=== PATIENT | male | born 1960 | race Caucasian/White ===

== ENCOUNTER → 2017-11-05 | Outpatient (CLI) | payer OTHER ==
[~2017-11-05] MED LIST: APIX5TAB PO; ASPI-621 PO; ASPI325T17 PO; FLEC100T PO; OMNIPAQUE 350 MG/ML, 150 ML BOTTLE ONE; PANT40TA3 PO; VERA240C2 PO; VERA40TA PO
== END | disposition home or self-care (01) ==
LOC: CFH 12:50
PROVIDERS: ATTEND Internal Medicine Cardiovascular Disease
DX: R91.1 Solitary pulmonary nodule (principal); J98.4 Other disorders of lung; I48.91 Unspecified atrial fibrillation
CPT/HCPCS: 71046; 75572; Q9967

== ENCOUNTER 2017-11-08 06:19 | Observation (INO) | payer OTHER ==
[2017-11-05 14:14] VITALS: BP 133/94
[2017-11-05 14:36] LABS: BASOPHILS # (AUTO) 0.07 x10^3/uL (0-0.1); BASOPHILS % (AUTO) 1 % (0-1); EOSINOPHILS % (AUTO) 1 % (1-7); LYMPHOCYTES % (AUTO) 23 % (22-44); MD NO; MEAN CORPUSCULAR HEMOGLOBIN 31.4 pg (27.5-34.5); MEAN CORPUSCULAR HGB CONC 34.5 g/dL (33.2-36.2); MEAN CORPUSCULAR VOLUME 91.2 fL (81-97); MEAN PLATELET VOLUME 7.4 fL (7.4-10.4); MONOCYTES # (AUTO) 0.46 x10^3/uL (0.2-0.8); MONOCYTES % (AUTO) 5 % (2-9); NEUTROPHILS # (AUTO) 6.03 x10^3/uL (1.8-6.8); NEUTROPHILS % (AUTO) 70 % (42-75); PLATELET COUNT 265 x10^3/uL (130-400); RED BLOOD COUNT 4.84 x10^6/uL (4.38-5.82); RED CELL DISTRIBUTION WIDTH 13.6 % (9.4-14.8)
[2017-11-05 14:45] LABS: ALBUMIN 3.9 g/dL (3.4-5.0); ANION GAP 8 mmol/L (5-15); CALCIUM 8.7 mg/dL (8.5-10.1); CHLORIDE 108 mmol/L (98-107)
[2017-11-05 14:48] LABS: ALANINE AMINOTRANSFERASE 29 U/L (12-78); ALKALINE PHOSPHATASE 67 U/L (45-117); BILIRUBIN,TOTAL 0.5 mg/dL (0.2-1.0); CREATININE 0.99 mg/dL (0.7-1.3); TOTAL PROTEIN 6.9 g/dL (6.4-8.2)
[~2017-11-08] VITALS: Ht 180.3 cm; Wt 72.6 kg
[~2017-11-08 06:19] MED LIST changes: -APIX5TAB PO; -FLEC100T PO; -OMNIPAQUE 350 MG/ML, 150 ML BOTTLE ONE
[2017-11-08] MEDS ORDERED: SODIUM CHLORIDE 0.9% 1,000 ML IV SCH ×2 (06:33→07:00)
[2017-11-08] MEDS ORDERED: MIDAZOLAM 1 MG/ML, 2ML ONE (07:47)
[2017-11-08] MEDS ORDERED: FENTANYL PF 250 MCG/5ML ONE (07:47)
[2017-11-08] MEDS ORDERED: PROTAMINE SULFATE 10 MG/ML, 5ML ONE (10:50)
[2017-11-08] MEDS ORDERED: ACETAMINOPHEN 325 MG TABLET PO PRN ×2 (11:00→12:00)
[2017-11-08] MEDS ORDERED: ZOLPIDEM 5MG TABLET PO PRN (11:00)
[2017-11-08] MEDS ORDERED: ONDANSETRON ODT 8 MG PO PRN (12:00)
[2017-11-08] MEDS ORDERED: MORPHINE SULFATE 4 MG/ML, 1ML IVPush PRN (12:00)
[2017-11-08] MEDS ORDERED: EPHEDRINE 50 MG/ML, 1ML IM PRN (12:00)
[2017-11-08] MEDS ORDERED: PROMETHAZINE 25 MG/ML, 1ML IV PRN (12:00)
[2017-11-08] MEDS ORDERED: OXYcodone 5 MG/5 ML ORAL.SOL UDC PO PRN (12:00)
[2017-11-08] MEDS ORDERED: FENTANYL PF 100 MCG/2ML IV PRN (12:00)
[2017-11-08] MEDS ORDERED: MEPERIDINE/PF 25MG/0.5ML IVPush PRN (12:00)
[2017-11-08] MEDS ORDERED: DIPHENHYDRAMINE 50 MG/ML, 1ML IVPush PRN (12:00)
[2017-11-08] MEDS ORDERED: MIDAZOLAM 1 MG/ML, 2ML IV PRN (12:00)
[2017-11-08] MEDS ORDERED: ONDANSETRON 2MG/ML, 2ML IV PRN (12:00)
[2017-11-08] MEDS ORDERED: PROMETHAZINE 25 MG SUPP PR PRN (12:00)
[2017-11-08] MEDS ORDERED: PROMETHAZINE 12.5 MG SUPP PR PRN (12:00)
[2017-11-08] MEDS ORDERED: APIXABAN 5 MG TABLET ONE (13:17)
[2017-11-08] MEDS: APIXABAN 5 MG TABLET PO SCH (13:20)
[2017-11-08] MEDS ORDERED: FLECAINIDE 100MG TABLET ONE (14:03)
[2017-11-08] MEDS: FLECAINIDE 100MG TABLET PO SCH (14:09)
[2017-11-08] MEDS ORDERED: DEXAMETHASONE 4 MG/ML, 1ML ONE (15:37)
[2017-11-08] MEDS ORDERED: ONDANSETRON 2MG/ML, 2ML ONE (15:37)
[2017-11-08] MEDS ORDERED: SUCCINYLCHOLINE 20 MG/ML, 10ML ONE (15:37)
[2017-11-08] MEDS ORDERED: PROPOFOL 10 MG/ML, 20ML ONE (15:37)
[2017-11-08] MEDS ORDERED: ROCURONIUM 10MG/ML,5ML ONE (15:37)
[2017-11-08 19:31] VITALS: BP 121/70
[2017-11-09] MEDS: FLECAINIDE 100MG TABLET PO SCH (01:22)
[2017-11-09] MEDS: APIXABAN 5 MG TABLET PO SCH ×2 (01:22→10:17)
[2017-11-09 01:24] VITALS: BP 113/74
[2017-11-09 10:22] VITALS: BP 121/75
[2017-11-09] MEDS ORDERED: APIX5TAB PO (10:29)
[2017-11-09] MEDS ORDERED: FLEC100T PO (10:29)
== END 2017-11-09 12:40 | disposition home or self-care (01) ==
LOC: OUT 06:19 → ORIP 10:54 → 5SO 13:33 → DCLOUNGE 11-09 12:26
PROVIDERS: ADMIT Internal Medicine Cardiovascular Disease; ATTEND Internal Medicine Cardiovascular Disease
DX: I48.91 Unspecified atrial fibrillation (principal); I48.92 Unspecified atrial flutter
CPT/HCPCS: 36415; 80053; 85025; 85347; 93306; 93312; 93321; 93325; 93613; 93655; 93656; 93662; C1730; C1731; C1732; C1759; C1766; C1893; C1894; G0378; J0330; J1100; J2250; J2405; J2704; J2720; J3010; J7030

== ENCOUNTER → 2019-01-30 | Outpatient (CLI) | payer OTHER ==
[~2019-01-30] MED LIST changes: +APIX5TAB PO; -ASPI-621 PO; +ASPI81TA45 PO; +FLEC100T PO
== END | disposition home or self-care (01) ==
LOC: CFH 15:23
PROVIDERS: ATTEND Nurse Practitioner Family
DX: I08.0 Rheumatic disorders of both mitral and aortic valves (principal); I48.91 Unspecified atrial fibrillation
CPT/HCPCS: 93306

== ENCOUNTER 2019-02-19 11:33 | Outpatient (CLI) | payer OTHER | END 2019-02-19 23:59 | disposition home or self-care (01) | LOC: CFH 11:33 | PROVIDERS: ATTEND Nurse Practitioner Family | DX: I48.91 Unspecified atrial fibrillation (principal) | CPT/HCPCS: 78452; 93017; A9502 ==

== ENCOUNTER 2019-03-07 07:27 | Day surgery (SDC) | payer OTHER ==
[~2019-03-07] VITALS: Ht 180.3 cm; Wt 84.1 kg
[2019-03-07] MEDS ORDERED: SODIUM CHLORIDE 0.9% 1,000 ML IV SCH (07:38)
[2019-03-07 07:50] VITALS: BP 117/75
[2019-03-07] MEDS ORDERED: PLEASE ENTER HEIGHT AND WEIGHT MC SCH (08:00)
[2019-03-07] MEDS ORDERED: ASPIRIN 325 MG TABLET EC PO ONE (08:00)
[2019-03-07] MEDS ORDERED: METO25TA35 PO (08:02)
[2019-03-07 08:16] LABS: BASOPHILS # (AUTO) 0.04 x10^3/uL (0-0.1); BASOPHILS % (AUTO) 1 % (0-1); EOSINOPHILS # (AUTO) 0.11 x10^3/uL (0-0.4); EOSINOPHILS % (AUTO) 2 % (1-7); LYMPHOCYTES # (AUTO) 1.47 x10^3/uL (1-3.4); LYMPHOCYTES % (AUTO) 25 % (22-44); MD NO; MEAN CORPUSCULAR HEMOGLOBIN 30.6 pg (27.5-34.5); MEAN CORPUSCULAR HGB CONC 33.6 g/dL (33.2-36.2); MEAN CORPUSCULAR VOLUME 91.1 fL (81-97); MEAN PLATELET VOLUME 7.2 fL (7.4-10.4); MONOCYTES # (AUTO) 0.44 x10^3/uL (0.2-0.8); MONOCYTES % (AUTO) 8 % (2-9); NEUTROPHILS # (AUTO) 3.76 x10^3/uL (1.8-6.8); NEUTROPHILS % (AUTO) 65 % (42-75); PLATELET COUNT 295 x10^3/uL (130-400); RED BLOOD COUNT 4.92 x10^6/uL (4.38-5.82); RED CELL DISTRIBUTION WIDTH 12.6 % (9.4-14.8)
[2019-03-07 08:26] LABS: ANION GAP 3 mmol/L (5-15); CALCIUM 8.7 mg/dL (8.5-10.1); CHLORIDE 113 mmol/L (98-107); CREATININE 0.99 mg/dL (0.7-1.3)
[2019-03-07] MEDS ORDERED: MIDAZOLAM 1 MG/ML, 2ML ONE ×2 (08:39→09:23)
[2019-03-07] MEDS ORDERED: FENTANYL PF 100 MCG/2ML ONE (08:40)
[2019-03-07] MEDS ORDERED: HEPARIN 1,000 UNITS/ML, 10ML ONE (08:40)
[2019-03-07] MEDS ORDERED: NITROGLYCERIN 5 MG/ML, 10ML ONE (08:40)
[2019-03-07] MEDS ORDERED: LIDOCAINE-MPF 1%, 5ML ONE (08:40)
[2019-03-07] MEDS ORDERED: VERAPAMIL 2.5 MG/ML, 2ML ONE (08:40)
[2019-03-07] MEDS ORDERED: ASPIRIN 325 MG TABLET EC ONE (08:53)
[2019-03-07] MEDS ORDERED: LIDOCAINE 2%, 20ML ONE (09:23)
[2019-03-07] MEDS ORDERED: FLU VACC QS2019-20 36MOS UP/PF 0.5 ML IM-VACC ONE (11:00)
== END 2019-03-07 11:08 | disposition home or self-care (01) ==
LOC: CACL 07:27
PROVIDERS: ATTEND Internal Medicine Cardiovascular Disease
DX: I25.118 Atherosclerotic heart disease of native coronary artery with other forms of angina pectoris (principal); I25.83 Coronary atherosclerosis due to lipid rich plaque; Z23 Encounter for immunization; I48.0 Paroxysmal atrial fibrillation; I10 Essential (primary) hypertension; Z79.899 Other long term (current) drug therapy
CPT/HCPCS: 36415; 80048; 85025; 90471; 90686; 93458; 99156; C1769; C1894; J1644; J2250; J3010; Q9967; G0008

== ENCOUNTER → 2020-01-26 | Outpatient (CLI) | payer OTHER ==
[~2020-01-26] MED LIST changes: +METO25TA35 PO
== END | disposition home or self-care (01) ==
LOC: STAR 09:35
PROVIDERS: ATTEND Anesthesiology
DX: Z20.828 Contact with and (suspected) exposure to other viral communicable diseases (principal)
CPT/HCPCS: 87635

== ENCOUNTER → 2020-01-26 | Outpatient (CLI) | payer OTHER ==
[~2020-01-26] MED LIST changes: +OMNIPAQUE 350 MG/ML, 150 ML BOTTLE ONE
== END | disposition home or self-care (01) ==
LOC: CFH 08:29
PROVIDERS: ATTEND Internal Medicine Cardiovascular Disease
DX: I48.91 Unspecified atrial fibrillation (principal)
CPT/HCPCS: 71046; 75572; Q9967

== ENCOUNTER 2020-01-30 06:12 | Observation (INO) | payer OTHER ==
[~2020-01-30] VITALS: Ht 180.3 cm; Wt 81.9 kg
[~2020-01-30 06:12] MED LIST changes: -OMNIPAQUE 350 MG/ML, 150 ML BOTTLE ONE
[2020-01-30 06:40] VITALS: BP_SYST 127; BP_SYST 151; BP_DIAS 73; BP_DIAS 76
[2020-01-30] MEDS ORDERED: FLEC50TA25 PO ×2 (07:14)
[2020-01-30] MEDS ORDERED: PROPOFOL 50 ML ONE (07:55)
[2020-01-30] MEDS ORDERED: FENTANYL PF 250 MCG/5ML ONE (07:55)
[2020-01-30] MEDS ORDERED: MIDAZOLAM 1 MG/ML, 2ML ONE (07:55)
[2020-01-30] MEDS ORDERED: SUCCINYLCHOLINE 20 MG/ML, 10ML ONE (08:08)
[2020-01-30] MEDS ORDERED: ONDANSETRON 2MG/ML, 2ML ONE (08:08)
[2020-01-30] MEDS ORDERED: LIDOCAINE 1%, 20ML ONE (08:29)
[2020-01-30] MEDS ORDERED: APIXABAN 5 MG TABLET ONE (08:48)
[2020-01-30] MEDS ORDERED: ISOPROTERENOL 0.2MG/ML, 5ML ONE (09:10)
[2020-01-30] MEDS ORDERED: DEXAMETHASONE 4 MG/ML, 5ML ONE (09:41)
[2020-01-30] MEDS ORDERED: ROCURONIUM 10MG/ML,5ML ONE (09:41)
[2020-01-30] MEDS ORDERED: HEPARIN 1,000 UNITS/ML, 10ML ONE ×3 (09:56)
[2020-01-30] MEDS: APIXABAN 5 MG TABLET PO SCH ×2 (11:30→20:25)
[2020-01-30] MEDS ORDERED: PROMETHAZINE 25 MG/ML, 1ML IVPush PRN (11:30)
[2020-01-30] MEDS ORDERED: PROMETHAZINE 25 MG/ML, 1ML IVPush ONE (11:30)
[2020-01-30] MEDS ORDERED: ACETAMINOPHEN 325 MG TABLET PO PRN ×2 (11:30)
[2020-01-30] MEDS ORDERED: FENTANYL PF 100 MCG/2ML IV PRN (11:30)
[2020-01-30] MEDS ORDERED: EPHEDRINE 50 MG/ML, 1ML IVPush PRN (11:30)
[2020-01-30] MEDS ORDERED: EPHEDRINE 50 MG/ML, 1ML IM PRN (11:30)
[2020-01-30] MEDS ORDERED: OXYcodone 5 MG/5 ML ORAL.SOL UDC PO PRN (11:30)
[2020-01-30] MEDS ORDERED: MEPERIDINE/PF 25MG/0.5ML IVPush PRN (11:30)
[2020-01-30] MEDS ORDERED: ONDANSETRON 2MG/ML, 2ML IVPush PRN (11:30)
[2020-01-30] MEDS ORDERED: LABETALOL 5MG/ML, 20ML IV PRN (11:30)
[2020-01-30] MEDS ORDERED: morphine SULFATE 10 MG/ML, 1ML IVPush PRN (11:30)
[2020-01-30] MEDS ORDERED: DIAZEPAM 5 MG/ML, 2ML IVPush PRN (11:30)
[2020-01-30] MEDS ORDERED: DIPHENHYDRAMINE 50 MG/ML, 1ML IVPush PRN (11:30)
[2020-01-30 15:05] VITALS: BP 101/68
[2020-01-30 19:33] VITALS: BP 97/59
[2020-01-30] MEDS: COLCHICINE 0.6 MG CAPSULE PO SCH (20:25)
[2020-01-31 02:16] VITALS: BP 99/65
[2020-01-31] MEDS ORDERED: APIX5TAB PO (08:05)
[2020-01-31] MEDS ORDERED: COLC0.6C3 PO (08:05)
[2020-01-31] MEDS ORDERED: FLEC50TA25 PO (08:05)
[2020-01-31 08:30] VITALS: BP 115/72
[2020-01-31] MEDS: COLCHICINE 0.6 MG CAPSULE PO SCH (09:18)
[2020-01-31] MEDS: APIXABAN 5 MG TABLET PO SCH (09:18)
== END 2020-01-31 10:10 | disposition home or self-care (01) ==
LOC: CACL 06:12 → ORIP 11:09 → 5SO 12:33 → DCLOUNGE 01-31 10:01
PROVIDERS: ADMIT Internal Medicine Cardiovascular Disease; ATTEND Internal Medicine Cardiovascular Disease
DX: I48.91 Unspecified atrial fibrillation (principal); I48.92 Unspecified atrial flutter; F10.10 Alcohol abuse, uncomplicated; Z79.01 Long term (current) use of anticoagulants; Z79.899 Other long term (current) drug therapy
CPT/HCPCS: 85347; 93306; 93312; 93321; 93325; 93613; 93623; 93656; 93657; 93662; C1730; C1732; C1766; C1893; C1894; G0378; J0330; J1100; J1644; J2250; J2405; J2704; J3010; J3490